=== PATIENT | female | born 1980 | race Caucasian/White ===

== ENCOUNTER 2018-10-05 09:55 | Outpatient (CLI) | payer OTHER ==
--- NOTE | 2018-10-05 10:46 | RAD ---
LUMBAR SPINE 4 VIEWS: Lateral views were obtained with neutral, flexion, and extension positions. INDICATION: Low back pain. FINDINGS: Lumbar vertebra maintain normal height and alignment. Disc spaces are maintained. No evidence of spon dylolisthesis. No change in alignment with flexion or extension. No significant degenerative change. An IUD overlies the pelvis just to the left of midline. IMPRESSION: Unremarkable lumbar spine. POS: OFF
== END 2018-10-05 09:56 | disposition home or self-care (01) ==
LOC: TBSIIMAG 09:55
PROVIDERS: ATTEND Surgery
DX: M51.16 Intervertebral disc disorders with radiculopathy, lumbar region (principal); M48.061 Spinal stenosis, lumbar region without neurogenic claudication
CPT/HCPCS: 72110